=== PATIENT | female | born 1950 | race Hispanic/Latino ===

== ENCOUNTER → 2024-05-15 | Outpatient (CLI) | payer OTHER ==
--- NOTE | 2024-05-15 09:39 | HMCIMG ---
US PELVIC NON-OB COMP HISTORY: Hysterectomy COMPARISON: None TECHNIQUE: Transabdominal pelvic ultrasound study was performed. FINDINGS: Uterus has been removed. Both ovaries have been. No adnexal mass is seen. No free fluid is seen in the cul-de-sac. IMPRESSION: 1. No adnexal mass is seen.
--- NOTE | 2024-05-15 09:40 | HMCIMG ---
US ABDOMINAL COMPLETE HISTORY: Pain COMPARISON: None TECHNIQUE: Multiple transverse and longitudinal ultrasound images of the abdomen were obtained. FINDINGS: Liver measured 13.6 cm. The visualized portion of the pancreas is within normal limits. Liver is echogenic consistent with liver parenchymal disease. Bladder has been removed. Common duct measures 7 mm. Abdominal aorta is not well visualized. Flow is seen in the inferior vena cava. Both kidneys are seen. Right kidney measures 9 x 4.9 x 5 cm. Left kidney measures 11.3 x 5.5 x 5.4 cm. No hydronephrosis is seen of the both kidneys. The spleen is grossly unremarkable. IMPRESSION: 1. Gallbladder has been removed. Borderline ductal dilatation is seen. 2. No hydronephrosis is seen.
== END | disposition home or self-care (01) ==
LOC: RAH 08:10
PROVIDERS: ATTEND Internal Medicine
DX: R10.31 Right lower quadrant pain (principal); R10.2 Pelvic and perineal pain; Z90.49 Acquired absence of other specified parts of digestive tract
CPT/HCPCS: 76700; 76856